=== PATIENT | male | born 1945 | race Caucasian/White ===

== ENCOUNTER 2021-02-09 15:18 | Emergency (ER) | payer OTHER ==
[~2021-02-09] VITALS: Ht 182.9 cm; Wt 87.5 kg
--- NOTE | ~2021-02-09 | EMS ---
[address] [address] EMS Patient Care Report Name: NALINI CROWELL Room #: DEP VALENTINE Marsh#: [id number] Admission: 02/09/21 Attend Phys: Discharge: 02/09/21 Date of : 41 Report #: [id number] THIS REPORT FOR: //name// Report Transmitted: 02/10/2021 15:10 EMS Care Summary [place], [place]/[facility] Incident [id number] @ 02/09/2021 14:44 Incident Location [address] [facility] Patient NALINI CROWELL Male, 75 Years 1945 Patient Address [address] [place] [address] Patient History None Reported, Patient Allergies Latex allergy,Penicillin allergy, Patient Medications Carvedilol, Chief Complaint BACK SPASMS Disposition Transported No Lights/[place] Dispatch Reason Back Pain (Non-Traumatic) Transported To [facility] Narrative M36 ARRIVED ON SCEN TO FIND A 75 YEAR OLD MALE LAYING IN BED. PATIENT STATED HE WAS HAVING BACK SPASMS BUT DENIED HAVING ANY RECENT FALLS. PATIENT WAS ABLE TO BE LIFTED FROM BED AND WALK TO STRETCHER WITH ASSISTANCE FROM BOTH CREW [address] [address] EMS Patient Care Report Name: NALINI CROWELL Room #: DEP VALENTINE Marsh#: [id number] Admission: 02/09/21 Attend Phys: Discharge: 02/09/21 Date of : 41 Report #: [id number] MEMBERS. ONCE ON STRETCHER PATIENT WAS SECURED TO STRETCHER WITH SAFETY BELTS. CREW MEMBERS THEN WHEELED PATIENT ON STRETCHER OUT TO BACK OF AMBULANCE. ONCE AT THE BACK OF THE AMBULANCE PATIENT WAS LIFTED ON STRETCHER INTO BACK OF AMBULANCE. EN ROUTE TO HOSPITAL A FULL SET OF VITALS WERE TAKEN THAT WERE STABLE AND WITHIN NORMAL RANGES. PATIENT RATED THEIR BACK PAIN A 10 ON A SCALE OF 0 TO 10. ONCE AT HOSPITAL CREW MEMBERS LIFTED PATIENT OUT OF AMBULANCE BY STRETCHER AND WHEELED PATIENT INTO HOSPITAL EMERGENCY ROOM. IN THE EMERGENCY ROOM PATIENT WAS PLACED IN HOSPITAL BED BY STANDING AND PIVOTING TO HOSPITAL BED WITH CREW MEMBERS ASSISTING ON BOTH SIDES OF PATIENTS ARMS. A FULL REPORT WAS GIVEN TO RECEIVING MEDICAL STAFF AND M36 WENT BACK INTO SERVICE AT 15:32 HOURS. Initial Vitals @15:28BP: 148/82, @15:07P: 54,R: 16,BP: 144/78,Pain: 10/10,GCS: 15,CO: 1,SpO2: 98,Revised Trauma: 12, Assessments @15:26MENTAL:Person Oriented,Time Oriented,Place Oriented,Event Oriented,SKIN:HEENT:Head/Face: No Abnormalities,LUNG SOUNDS:General: No Abnormalities,ABDOMEN:General: No Abnormalities,PELVIS//GI:No Abnormalities,EXTREMITIES:Left Arm: No Abnormalities,Right Arm: No Abnormalities,Left Leg: No Abnormalities,Right Leg: No Abnormalities,PULSE:Radial: 2+ Normal,NEURO:No Abnormalities, Impression Back Pain Procedures @15:25ALS AssessmentResponse: UnchangedSucceeded@15:25BLS AssessmentResponse: Unchanged@15:26StretcherResponse: Unchanged Timeline 14:42,Call Received 14:42,Dispatch Notified 14:44,Dispatched 14:45,En Route 14:54,On Scene 15:04,At Patient 15:07,BP: 144/78 M,PULSE: 54,RR: 16 R,SPO2: 98 Ox,ETCO2: ,BG: ,PAIN: 10,GCS: 15, 15:08,Depart Scene 15:12,At Destination 15:25,ALS Assessment,Response: UnchangedSucceeded, 15:25,BLS Assessment,Response: Unchanged 15:26,Stretcher,Response: Unchanged [address] [address] EMS Patient Care Report Name: NALINI CROWELL Room #: [facility] Salma#: [id number] Admission: 02/09/21 Attend Phys: Discharge: 02/09/21 Date of : 41 Report #: [id number] 15:28,BP: 148/82 M,PULSE: ,RR: R,SPO2: Ox,ETCO2: ,BG: ,PAIN: ,GCS: , 15:32,Call Closed Disclaimer v1.1 Copyright 2020 [employer] This EMS Care Summary contains data elements from the applicable legal record (which may be displayed differently). It is designed to provide pertinent information for the following purposes: continuity of care, clinical quality, and state data reporting. The complete legal record is available to ED staff and administrators of the receiving hospital in [facility]'s Patient Tracker. All data is provided "as is."
[2021-02-09] MEDS ORDERED: CARVEDILOL3.125 MG PO (15:44)
[2021-02-09] MEDS ORDERED: LOVASTAT40 PO (15:44)
[2021-02-09 17:10] LABS: URINE BILIRUBIN NEGATIVE (Negative); URINE BLOOD NEGATIVE (Negative); URINE CLARITY CLEAR; URINE COLOR YELLOW; URINE GLUCOSE-RANDOM* NEGATIVE (Negative); URINE KETONES NEGATIVE (Negative); URINE LEUKOCYTES-REFLEX NEGATIVE (Negative); URINE NITRITE-REFLEX NEGATIVE (Negative); URINE PROTEIN (DIPSTICK) NEGATIVE (Negative); URINE UROBILINOGEN 0.2 E.U./dl (0.2-1.0)
[2021-02-09 17:14] LABS: ABSOLUTE NEUTROPHILS 4.9 thou/uL (1.4-8.2); BASOPHILS 0.4 % (0.0-2.0); EOSINOPHILS 3.5 % (0.0-3.0); HEMOGLOBIN 13.6 gm/dL (14.0-18.0); LYMPHOCYTES 20.2 % (24.0-44.0); MCH 30.8 pg (26.0-34.0); MCHC 33.9 g/dL (28.0-37.0); MCV 91.1 fL (80.0-100.0); MONOCYTES 8.8 % (1.0-8.0); PLATELET COUNT 171 thou/uL (150-400); POLYS 67.1 % (36.0-66.0); RDW 13.4 % (10.5-14.5); WBC 7.3 thou/uL (4.0-11.0)
[2021-02-09 17:22] LABS: CALCIUM 9.3 mg/dL (8.5-10.1); POTASSIUM 4.2 mmol/L (3.5-5.1)
[2021-02-09] MEDS ORDERED: ZANAFLEX4 MG PO (18:05)
[2021-02-09] MEDS ORDERED: MOBIC7.5 MG PO (18:09)
[2021-02-09 18:10] VITALS: BP 136/60
== END 2021-02-09 18:10 | disposition home or self-care (01) ==
LOC: ER 15:18
PROVIDERS: Nurse Practitioner
DX: M62.830 Muscle spasm of back (principal); Z79.899 Other long term (current) drug therapy; Z88.0 Allergy status to penicillin; Z88.8 Allergy status to other drugs, medicaments and biological substances